=== PATIENT | female | born 1970 | race Caucasian/White ===

== ENCOUNTER 2019-09-15 03:17 | Emergency (ER) | payer SELFPAY ==
[~2019-09-15] VITALS: Ht 165.1 cm; Wt 52.2 kg
[2019-09-15] MEDS ORDERED: THYR15TA PO (03:32)
[2019-09-15] MEDS ORDERED: LET TOPICAL SOLUTION 8 ML UDC ONE (03:43)
[2019-09-15] MEDS ORDERED: LET TOPICAL SOLUTION 8 ML UDC TP ONE (03:45)
[2019-09-15] MEDS ORDERED: HYDROCODONE/APAP 5-325MG TABLET PO ONE (03:45)
[2019-09-15] MEDS ORDERED: HYDROCODONE/APAP 5-325MG TABLET ONE (03:50)
[2019-09-15] MEDS ORDERED: HYDROMORPHONE 1 MG/1 ML DISP.SYRIN ONE (04:23)
[2019-09-15] MEDS ORDERED: ONDANSETRON 4 MG/2 ML VIAL ONE (04:23)
[2019-09-15] MEDS ORDERED: SULFAMETH/TRIMETH 800/160 MG TABLET ONE (04:24)
[2019-09-15] MEDS ORDERED: HYDROMORPHONE 1 MG/1 ML DISP.SYRIN IM ONE (04:30)
[2019-09-15] MEDS ORDERED: ONDANSETRON 4 MG/2 ML VIAL IM ONE (04:30)
[2019-09-15] MEDS ORDERED: SULFAMETH/TRIMETH 800/160 MG TABLET PO ONE (04:30)
--- NOTE | 2019-09-15 05:00 | NUR ---
ERMD AT BEDSIDE FOR MINOR I&D PT ABLE TO TOLERATE PROCEDURE PT ABLE TO TOLERATE PO MEDS ORDERED
[2019-09-15] MEDS ORDERED: NEOMY/BACITRA/POLYMYXIN B OINT UD PACKET TP ONE ×2 (05:03→05:15)
--- NOTE | 2019-09-15 05:22 | NUR ---
Patient discharged to home in stable conditon. Written and verbal after care instructions given. Patient verbalizes understanding of instructions. AMBULATORY W/ STABLE GAIT ALL BELONGINGS W/ PT APPLIE NON ADHERENT DRESSING ON R BIG TOE WRAPPED WITH CONFORMING GAUZE
[2019-09-15 05:23] VITALS: BP 132/89
== END 2019-09-15 05:24 | disposition home or self-care (01) ==
LOC: ER 03:24
DX: L03.031 Cellulitis of right toe (principal); E03.9 Hypothyroidism, unspecified; Z88.0 Allergy status to penicillin; Z79.899 Other long term (current) drug therapy
CPT/HCPCS: 96372 ×2; 99283; J1170; J2405; A4217; A4663